=== PATIENT | female | born 1970 | race Caucasian/White ===

== ENCOUNTER → 2017-08-20 | Outpatient (CLI) | payer OTHER ==
--- NOTE | 2017-08-20 10:52 | ECHOS ---
STRESS ECHOCARDIOGRAM DATE OF SERVICE: 08/20/2017 INDICATIONS: Chest pain, shortness of breath. MEDICATIONS: BASELINE HEART RATE: 75 BASELINE BLOOD PRESSURE: 109/52 MAXIMUM HEART RATE: 170 MAXIMUM BLOOD PRESSURE: 214/55 85% MPHR: 147 100% MPHR: 173 METS: 7.0 MAXIMUM STAGE REACHED: II TOTAL EXERCISE TIME: 5 minutes CLINICAL INFORMATION: This is a 46-year-old female with chest pain, shortness of breath, referred by Dr. Rose. Baseline heart rate 75 beats per minute. Baseline blood pressure 109/52 mmHg. Baseline 12-lead ECG showed normal sinus rhythm with normal cardiac intervals and normal ST segments. The patient exercised on a Surya protocol for only 5 minutes and was quite short of breath by this time. She had a hypertensive response to exercise. There was no ECG evidence for ischemia. Very occasional PVCs were noted. Baseline 2D echo images showed normal LV size and systolic function with no segmental wall motion abnormalities. At peak exercise, there was excellent augmentation of overall LV contractility without development of any wall motion abnormalities. At recovery regional global LV systolic function remained normal. IMPRESSION: 1. No ECG or echocardiographic evidence for ischemia. 2. Low workload level achieved on the Surya protocol. 3. The patient was short of breath at peak exercise, low exercise capacity. 4. Possible hypertensive response to exercise. 5. Very occasional PVCs noted. No sustained arrhythmias. MMODL / IJN: [id number] /
== END | disposition home or self-care (01) ==
LOC: RADNMMAIN 09:03
PROVIDERS: ATTEND Family Medicine
DX: I49.3 Ventricular premature depolarization (principal); R07.89 Other chest pain; R06.02 Shortness of breath
CPT/HCPCS: 93017; 93350

== ENCOUNTER → 2017-09-17 | Outpatient (CLI) | payer OTHER ==
--- NOTE | 2017-09-17 07:57 | US ---
EXAMINATION TYPE: US abdomen complete DATE OF EXAM: 09/17/2017 COMPARISON: NONE CLINICAL HISTORY: R10.9 abdominal pain. EXAM MEASUREMENTS: Liver Length: 12.3 cm Gallbladder Wall: 0.2 cm CBD: 0.4 cm Spleen: 9.8 cm Right Kidney: 10.3 x 5.2 x 5.0 cm Left Kidney: 10.5 x 5.5 x 5.0 cm Patient has a thick midsection, with extensive overlying bowel gas. Pancreas: Mostly obscured by bowel gas, portions visualized wnl Liver: Increased attenuation. This creates poor visualization of the portal triads and is most commo nly associated with hepatic steatosis. This limits evaluation for underlying hepatic masses. Gallbladder: wnl Evidence for sonographic Castillo's sign: no CBD: wnl Spleen: very limited visualization due to overlying bowel and tight intercostal spaces Right Kidney: wnl Left Kidney: wnl Upper IVC: wnl Abd Aorta: portions visualized wnl, largely obscured by bowel gas The intrahepatic portion of the IVC and proximal abdominal aorta are within normal limits. There is no evidence of cholelithiasis. Common bile duct is unremarkable. The visualized portions of the pa ncreas are homogenous. The spleen is unremarkable. Kidneys are symmetric and free of hydronephrosis . No renal lesions are seen. IMPRESSION: 1. Sonographic findings most compatible with hepatic steatosis. 2. No sonographic evidence of cholelithiasis or acute cholecystitis.
== END | disposition home or self-care (01) ==
LOC: RADUSWWP 06:48
PROVIDERS: ATTEND Family Medicine
DX: R10.9 Unspecified abdominal pain (principal)
CPT/HCPCS: 76700

== ENCOUNTER 2017-09-27 11:33 | Day surgery (SDC) | payer OTHER ==
[2017-09-25 13:20] VITALS: BMI 29.9
[~2017-09-27 11:33] MED LIST: LACTATED RINGERS 1,000 ML IV SCH
[2017-09-27 12:14] VITALS: RESP 16; TEMP 98.3
[2017-09-27] MEDS ORDERED: LIDOCAINE 1% 20 ML VIAL (10MG/ML) FOR IV START INTRADERMA ONE (12:23)
[2017-09-27] MEDS ORDERED: LIDOCAINE 1% INJ 10MG/ML (20 ML MDV) ONE (12:33)
[2017-09-27] MEDS ORDERED: PROPOFOL 10 MG/ML 20 ML VIAL IV ONE (12:33)
--- NOTE | 2017-09-27 13:12 | P.PCN ---
Date of Procedure: 09/27/17 Procedure(s) Performed: Procedure: Esophagogastroduodenoscopy and biopsy. Preoperative diagnosis: Epigastric and atypical chest pains requiring therapy. Postoperative diagnosis: 1. Hiatal hernia with LA grade B distal esophagitis. 2. Mild gastritis and duodenitis. 3. Multiple biopsies obtained from the duodenum, antrum and esophagus. Preparation and sedation: Was provided by anesthesia. Brief clinical history: The patient is a 46-year-old female who was been having issues with epigastric and upper abdominal pains and atypical chest pains for the last 2-3 weeks. She believes this started following bronchitis and severe cough. She has taken Motrin and she also took Prilosec [id number]. An ultrasound of the abdomen performed September 17 showed fatty liver but no gallbladder problems. This evaluation is to assess for esophagitis, complicated reflux disease or other pathology. Procedure: With the patient on her left lateral decubitus position and after informed consent and adequate sedation, I passed the Olympus-GIF 160 video upper endoscope through the cricopharyngeus down the esophagus. GE junction was around 35-36 cm from the incisors and there was a 2-3 cm sliding hiatal hernia. The distal esophagus showed short broad erosions and small punctate ulcerations consistent with LA grade B distal esophagitis. No strictures or Kumar's esophagus. The endoscope was then passed into the stomach which was insufflated with air and inspected in detail including the retroflex view in the cardia. There was some mottling and erythema in the antrum but no ulcers or erosions. Pyloric channel did not show any ulcers. Duodenal bulb, post bulbar area and descending duodenum showed some erythema and submucosal hemorrhages but no ulcers, erosions or bleeding. I obtained biopsies from the duodenum, antrum and esophagus then the endoscope was withdrawn. The patient tolerated the procedure well. Plan: The patient was reassured. She will follow-up with you as planned. Will await biopsy results. I advised her to continue antireflux diet and measures and to continue with PPI therapy. I would be happy to see in the office of her symptoms persist.
[2017-09-27 13:29] VITALS: BP 143/78; PULSE 64
== END 2017-09-27 13:33 | disposition home or self-care (01) ==
LOC: ORWHC2ENDO 11:33
DX: K29.50 Unspecified chronic gastritis without bleeding (principal); K21.0 Gastro-esophageal reflux disease with esophagitis; K22.10 Ulcer of esophagus without bleeding; K44.9 Diaphragmatic hernia without obstruction or gangrene; K29.80 Duodenitis without bleeding; K76.0 Fatty (change of) liver, not elsewhere classified; Z79.51 Long term (current) use of inhaled steroids; Z79.899 Other long term (current) drug therapy
CPT/HCPCS: 81025; 88305; 43239; J2001; J2704

== ENCOUNTER → 2017-10-01 | Outpatient (CLI) | payer OTHER ==
--- NOTE | 2017-10-01 19:55 | CT ---
EXAMINATION TYPE: CT abdomen pelvis w con DATE OF EXAM: 10/01/2017 COMPARISON: NONE HISTORY: LUQ pain x2 months CT DLP: 976.1 mGycm Automated exposure control for dose reduction was used. TECHNIQUE: Helical acquisition of images was performed from the lung bases through the pelvis. CONTRAST: Performed with Oral Contrast and with IV Contrast, patient injected with 100 mL of Isovue 3 00. FINDINGS: LUNG BASES: No significant abnormality is appreciated. LIVER/GB: No significant abnormality is appreciated. PANCREAS: No significant abnormality is seen. SPLEEN: No significant abnormality is seen. ADRENALS: No significant abnormality is seen. KIDNEYS: No significant abnormality is seen. FREE AIR: No free air is visualized. RETROPERITONEAL ADENOPATHY: None visualized REPRODUCTIVE ORGANS: No significant abnormality is seen URINARY BLADDER: No significant abnormality is seen. PELVIC ADENOPATHY: None visualized. OSSEOUS STRUCTURES: No significant abnormality is seen. BOWEL: There are numerous diverticula scattered throughout the sigmoid colon and descending colon, g reater than that normally seen in this age group. However, there is no focus of reilly diverticulitis at this time. The hollow viscera of the abdomen and pelvis are otherwise unremarkable. VASCULATURE: Unremarkable. IMPRESSION: NO ACUTE PROCESS.
== END ==
LOC: RADCTMAIN 17:29
PROVIDERS: ATTEND Family Medicine
DX: R10.9 Unspecified abdominal pain (principal)
CPT/HCPCS: 74177; Q9967